=== PATIENT | female | born 2000 | race Caucasian/White ===

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

== ENCOUNTER → 2019-05-23 | Outpatient (CLI) | payer OTHER ==
--- NOTE | 2019-05-23 18:25 | Diagnostic Imaging Report ---
PROCEDURE: US Thyroid. TECHNIQUE: Multiple real-time grayscale images were obtained of the thyroid in various projections. INDICATION: Thyroid cyst. FINDINGS: The previous thyroid ultrasound exam performed on 08/04/2016 noted that the thyroid gland was not enlarged and that there was no focal abnormality involving either lobe. On this study, the thyroid gland does not appear to be enlarged. The right lobe measures 4.9 x 1.5 x 1.6 cm while the left lobe is estimated to be 4.2 x 1.2 x 1.6 cm (normal gland size 4-5 x 2 x 2 cm or less). Each lobe is fairly homogeneous. There is no discrete solid or cystic mass evident within either lobe. IMPRESSION: The thyroid gland appears stable when compared to the prior exam. The gland is not enlarged, and there is no discrete solid or cystic mass within either lobe. Dictated by: Dictated on workstation # [id number]
== END ==
LOC: RAD 15:48
PROVIDERS: ATTEND Nurse Practitioner
DX: E04.1 Nontoxic single thyroid nodule (principal); E03.9 Hypothyroidism, unspecified
CPT/HCPCS: 76536

== ENCOUNTER 2020-07-04 12:35 | Outpatient (CLI) | payer OTHER ==
[2020-07-04] VITALS (8 sets, daily range): BP systolic 137–176; BP diastolic 65–92
[~2020-07-04] VITALS: Ht 165 cm; Wt 135.7 kg
--- NOTE | 2020-07-04 12:42 | NUR ---
CHAVEZRAMAKRISHNA Gracia presented to unit via ambulation from ED, accompanied by mother, with c/o R ANKLE SWELLING/HIGH BP/DIARRHEA. INGE CHAVEZILY Basil weighed, gowned, voided, and to bed. EFHM and TOCO applied, VS taken. RAMAKRISHNA CHAVEZ Basil oriented to bed controls, call light, TV, heat, and A/C controls.
--- NOTE | 2020-07-04 13:19 | NUR ---
Dr. Leahy called and notified of pt arrival. Pt is G1 due 08/03 (35.5wks) here c/o diarrhea that started yesterday, ankle swelling x 2 days, cramping x 1 week, and SHEPHERD, dizziness, and elevated BP starting this morning. notified of SVE, VS, FHR, ctx pattern, patellar reflexes, urine dipstick and other assessment findings. Orders rec'd for IV fluids, labs, tylenol. Pt may have regular diet.
[2020-07-04] MEDS ORDERED: D5 LR IV SOLUTION 1,000 ML IV SCH (13:30)
[2020-07-04] MEDS ORDERED: ACETAMINOPHEN 500 MG TAB (TYLENOL) PO PRN (13:30)
[2020-07-04 14:11] LABS: URINE CREATININE FOR RATIO 131 MG/DL (30-125)
[2020-07-04 14:12] LABS: BASOPHILS % (AUTO) 0 % (0-10); EOSINOPHILS % (AUTO) 0 % (0-10); HEMATOCRIT 36 % (35-52); HEMOGLOBIN 12.3 g/dL (11.5-16.0); LYMPHOCYTES # (AUTO) 2.3 10^3/uL (1.0-4.0); LYMPHOCYTES % (AUTO) 20 % (12-44); MEAN CORPUSCULAR HEMOGLOBIN 29 pg (25-34); MEAN CORPUSCULAR HGB CONC 34 g/dL (32-36); MEAN CORPUSCULAR VOLUME 85 fL (80-99); MEAN PLATELET VOLUME 11.9 fL (9.0-12.2); MONOCYTES # (AUTO) 0.8 10^3/uL (0.0-1.0); MONOCYTES % (AUTO) 7 % (0-12); NEUTROPHILS # (AUTO) 8.6 10^3/uL (1.8-7.8); NEUTROPHILS % (AUTO) 73 % (42-75); PLATELET COUNT 186 10^3/uL (130-400); WHITE BLOOD COUNT 11.8 10^3/uL (4.3-11.0)
[2020-07-04 14:12] LABS: URINE PROTEIN FOR RATIO ONLY < 6 MG/DL (6-12)
[2020-07-04 14:32] LABS: ALANINE AMINOTRANSFERASE 12 U/L (0-55); ALBUMIN 3.3 GM/DL (3.2-4.5); ALKALINE PHOSPHATASE 124 U/L (40-136); BILIRUBIN,TOTAL 0.2 MG/DL (0.1-1.0); BUN/CREATININE RATIO 13; CALCIUM 9.3 MG/DL (8.5-10.1); CARBON DIOXIDE 20 MMOL/L (21-32); CHLORIDE 106 MMOL/L (98-107); CREATININE SERUM 0.71 MG/DL (0.60-1.30); GFR ESTIMATED > 60; GLUCOSE 77 MG/DL (70-105); SODIUM 138 MMOL/L (135-145); TOTAL PROTEIN 6.1 GM/DL (6.4-8.2); URIC ACID 5.7 MG/DL (2.6-7.2)
--- NOTE | 2020-07-04 14:47 | NUR ---
Lab results reported to Dr. Leahy, along with latest VS. Orders for dismissal rec'd.
[2020-07-04] MEDS ORDERED: PREN-48 PO (15:03)
--- NOTE | 2020-07-04 15:29 | NUR ---
Discharge instructions explained to pt with copy provided to pt. Pt verbalizes understanding of instructions and signs to verify. No questions or concerns voiced. Pt ambulates off unit to private vehicle accompanied by mom.
--- NOTE | 2020-07-07 16:47 | Physician Query-Final Dx ---
DESI GARRETT 07/07/20 1646: Final Diagnosis Give Final Diagnosis Please give Final Diagnosis SARAY MARCUM MD 07/08/20 1540: Final Diagnosis Give Final Diagnosis Viral gastroenteritis DESI GARRETT Jul 07, 2020 16:46 SARAY MARCUM MD Jul 08, 2020 15:40
== END 2020-07-04 15:30 | disposition home or self-care (01) ==
LOC: WSo 12:35 → LDRP 12:35 → WSo 15:30
PROVIDERS: ATTEND Obstetrics & Gynecology
DX: O99.619 Diseases of the digestive system complicating pregnancy, unspecified trimester (principal); A08.4 Viral intestinal infection, unspecified; Z3A.36 36 weeks gestation of pregnancy
CPT/HCPCS: 80053; 82570; 83615; 84156; 84550; 85025; 96360; G0463; 36415; 99214

== ENCOUNTER → 2020-07-13 | Outpatient (CLI) | payer OTHER ==
[~2020-07-13] MED LIST changes: -CATHETER FLUSH 10 ML SYR IV PRN; -IOHEXOL 350 MG/ML 100 ML (OMNIPAQUE 350) VIAL IV ONE; -NS 250 ML (IVPB) BAG IV ONE; +PREN-48 PO; -RECEIVED CONTRAST (Hold Metformin) IV SCH
[2020-07-13 16:20] LABS: URINE CREATININE FOR RATIO 23 MG/DL (30-125)
[2020-07-13 16:21] LABS: URINE PROTEIN FOR RATIO ONLY < 6 MG/DL (6-12)
== END ==
LOC: LABNPT 15:00
PROVIDERS: ATTEND Obstetrics & Gynecology
DX: O14.93 Unspecified pre-eclampsia, third trimester (principal)
CPT/HCPCS: 82570; 84156

== ENCOUNTER 2020-07-16 10:53 | Inpatient (IN) | payer OTHER ==
[~2020-07-16] VITALS: Ht 169.3 cm; Wt 136.3 kg
[2020-07-16] VITALS (41 sets, daily range): BP systolic 98–179; BP diastolic 48–103
[~2020-07-16 10:53] MED LIST changes: -DOCU-143 PO; -IBUP-1780 PO; -OXYC1TAB12 PO
--- NOTE | 2020-07-16 11:00 | NUR ---
RAMAKRISHNA CHAVEZ presented to unit via WC from ED, accompanied by S/0, with c/o CONTRACTIONS. RAMAKRISHNA CHAVEZ weighed, gowned, voided, and to bed. EFHM and TOCO applied, VS taken. RAMAKRISHNA CHAVEZ oriented to bed controls, call light, TV, heat, and A/C controls.
--- NOTE | 2020-07-16 11:40 | NUR ---
DR MARCUM CALLED, NEW ORDERS RECEIVED PT ADMITTED FOR LABOR.
[2020-07-16] MEDS ORDERED: LIDOCAINE/EPI 2% 1:200,00 (XYLOCAINE) 10 ML VIAL INJ PRN (12:00)
[2020-07-16] MEDS ORDERED: D5 LR IV SOLUTION 1,000 ML IV SCH ×3 (12:00→20:15)
[2020-07-16] MEDS ORDERED: OXYTOCIN PRE-MIX DRIP 500 ML IV SCH ×3 (12:00→20:15)
--- NOTE | 2020-07-16 12:30 | History & Physical ---
History and Physical Date Seen by Provider: Jul 16, 2020 Time Seen by Provider: 12:26 This patient is a 20-year-old 1 white female currently at 37-3/7 weeks gestation who is admitted from my clinic with elevated blood pressure and an elevated LDH and with somewhat regular contractions. She denies rupture membranes or bleeding. She has had no problems with this , other than a persistently elevated blood pressure and a recently progressively increased blood pressure. Patient denies rupture membranes or bleeding. Her GBS culture was negative. Allergies are none Medications are vitamins Medical social and surgical history is all per the antepartum record HEENT exam is normal Neck is supple no lymphadenopathy no thyromegaly Abdomen is gravid soft nontender nondistended Extremities show no clubbing or cyanosis. There is no Homans' sign. Pelvic exam in my clinic on this date showed a cervix 1 cm dilated 70% effaced relatively high station. NST clinic showed a reactive NST with occasional contractions, patient currently is [place] about every 5 or 6 minutes Lab work performed in my clinic showed an elevated LDH, platelet count of about 180,000, hemoglobin of 12, a urine protein creatinine ratio that was apparently not elevated Assessment and plan 37+ week gestation in a patient with significant PIH and with an elevating LDH concerning for developing preeclampsia/help syndrome. Patient is admitted now may be in early labor as evidenced by her regular contractions but she will managed for either vaginal delivery or IF warranted. Close attention to blood pressures and we will follow up her lab work after delivery as well 37-3/7 weeks gestation with PIH/preeclampsia Allergies and Home Medications Allergies Coded Allergies: No Known Drug Allergies (Unverified , 11/27/10) Home Medications Vit No.78/Iron/FA 1 Each Tablet, 1 EACH PO DAILY, (Reported) Patient Home Medication List Home Medication List Reviewed: Yes SARAY MARCUM MD Jul 16, 2020 12:30
[2020-07-16 13:56] LABS: BASOPHILS % (AUTO) 0 % (0-10); EOSINOPHILS % (AUTO) 0 % (0-10); HEMATOCRIT 39 % (35-52); HEMOGLOBIN 13.5 g/dL (11.5-16.0); LYMPHOCYTES # (AUTO) 2.4 10^3/uL (1.0-4.0); LYMPHOCYTES % (AUTO) 19 % (12-44); MEAN CORPUSCULAR HEMOGLOBIN 30 pg (25-34); MEAN CORPUSCULAR HGB CONC 35 g/dL (32-36); MEAN CORPUSCULAR VOLUME 85 fL (80-99); MEAN PLATELET VOLUME 12.3 fL (9.0-12.2); MONOCYTES # (AUTO) 0.6 10^3/uL (0.0-1.0); MONOCYTES % (AUTO) 5 % (0-12); NEUTROPHILS # (AUTO) 9.4 10^3/uL (1.8-7.8); NEUTROPHILS % (AUTO) 75 % (42-75); PLATELET COUNT 206 10^3/uL (130-400); WHITE BLOOD COUNT 12.5 10^3/uL (4.3-11.0)
[2020-07-16] MEDS ORDERED: fentaNYL 2 mcg/ml BUPIVA 0.125 100 ML ONE (16:06)
[2020-07-16] MEDS ORDERED: LIDOCAINE PF 2% 5 ML (XYLOCAINE) VIAL ONE ×2 (16:07→18:24)
[2020-07-16] MEDS ORDERED: BUPIVACAINE 0.25% 30 ML (SENSORCAINE) VIAL ONE ×2 (16:07→19:24)
[2020-07-16] MEDS ORDERED: fentaNYL INJECTION 100 MCG/2 ML AMP ONE ×2 (16:08→17:23)
[2020-07-16] MEDS ORDERED: fentaNYL INJECTION 100 MCG/2 ML AMP INJ ONE (16:15)
[2020-07-16] MEDS ORDERED: NALOXONE 0.4 MG/ML 1 ML (NARCAN) VIAL IV PRN (16:15)
[2020-07-16] MEDS ORDERED: LACTATED RINGERS 1,000 ML IV ONE ×2 (16:15)
[2020-07-16] MEDS ORDERED: ONDANSETRON 4 MG/2 ML (SDV) Z0FRAN IV PRN (16:15)
[2020-07-16] MEDS ORDERED: EPIDURAL (fentaNYL 2 MCG/ML BUPIVA 0.125%)100 ML BAG EPI PRN (16:15)
--- NOTE | 2020-07-16 16:15 | NUR ---
TERRA here for epidural placement. Procedure explained, consent reviewed and signed by anesthesia. Questions answered to patient's satisfaction. Time out taken to verify correct patient/procedure. Patient up to side of bed, assisted into sitting position. Betadine prep done x3 and sterile drape applied. Local done, see anesthesia record. Test dose given, see anesthesia record for drug and dosage. Epidural catheter secured in place. Epidural placement complete. Assisted back into bed, monitors adjusted. Epidural dosed, see anesthesia record. Epidural of Sufenta/Bupvicaine @_12 cc/hr stated per pump. Patient tolerated procedure well.
[2020-07-16] MEDS ORDERED: CITRIC ACID/SOB CIT (BICITRA) 30 ML UDC ONE (17:07)
[2020-07-16] MEDS ORDERED: AZITHROMYCIN INJECTION 500 MG/5 ML VIAL ONE (17:07)
[2020-07-16] MEDS ORDERED: METOCLOPRAMIDE INJ 10 MG/2 ML (REGLAN) ONE (17:07)
[2020-07-16] MEDS ORDERED: FAMOTIDINE 20MG/2ML IV (PEPCID) ONE (17:08)
[2020-07-16] MEDS ORDERED: ceFAZolin 2 GM IV Premixed 50 ML ONE (17:08)
[2020-07-16] MEDS ORDERED: metroNIDAZOLE 500MG/100ML IVPB 100 ML ONE (17:08)
[2020-07-16] MEDS ORDERED: TERBUTALINE INJ 1 MG/ML (BRETHINE) AMP ONE (17:20)
[2020-07-16] MEDS ORDERED: ceFAZolin INJECTION 2,000 MG in WATER (STERILE) FOR INJECTION 10 ML IV ONE (17:30)
[2020-07-16] MEDS ORDERED: metroNIDAZOLE 500MG/100ML IVPB 100 ML IV ONE (17:30)
[2020-07-16] MEDS ORDERED: IBUP-1780 PO (17:31)
[2020-07-16] MEDS ORDERED: DOCU-143 PO (17:31)
[2020-07-16] MEDS ORDERED: OXYC1TAB12 PO (17:31)
--- NOTE | 2020-07-16 17:31 | Discharge Inst-Surgical ---
Discharge Inst-Surgical Depart Medication/Instructions New, Converted or Re-Newed RX: RX on Chart Consults/Follow Up Patient Instructions: As directed Orders & Referrals Follow Up Appt: RTC On Friday, July 24, 2020 at 9:30 AM for incision check. Call to make follow up appt. for patient in 4 weeks. Wound Care: Remove griffin, apply benzoin and steri strips. Activity Per routine post instructions. Please call in RX to patient pharmacy. Diet as tolerated Patient may shower or tub bathe as desired. Continue home meds Activity Activity as Tolerated: No Diet Discharge Diet: No Restrictions SARAY MARCUM MD Jul 16, 2020 17:31
[2020-07-16] MEDS ORDERED: OXYTOCIN PRE-MIX DRIP 1,000 ML IV ONE (17:35)
[2020-07-16] MEDS ORDERED: LACTATED RINGERS 1,000 ML IV PRN ×2 (17:45)
[2020-07-16] MEDS ORDERED: FAMOTIDINE 20MG/2ML IV (PEPCID) IV ONE (17:45)
[2020-07-16] MEDS ORDERED: METOCLOPRAMIDE INJ 10 MG/2 ML (REGLAN) IV ONE (17:45)
[2020-07-16] MEDS ORDERED: CITRIC ACID/SOB CIT (BICITRA) 30 ML UDC PO ONE (17:45)
[2020-07-16] MEDS ORDERED: TERBUTALINE INJ 1 MG/ML (BRETHINE) AMP SC ONE (17:45)
[2020-07-16] MEDS ORDERED: PHENYLEPHRINE 100 MCG/ML 10 ML (ANESTHESIA) SYR ONE (18:39)
--- NOTE | 2020-07-16 20:11 | NUR ---
Pt transferred via bed from recovery to PP UNIT ROOM 308, oriented to call system and surroundings, sandwich trays supplied, water refilled, pt denies needs at this time.
[2020-07-16] MEDS ORDERED: MEASLES,MUMPS,RUBELLA 1 EA INJ SC ONE (20:15)
[2020-07-16] MEDS ORDERED: ONDANSETRON 4 MG/2 ML (SDV) Z0FRAN IVP PRN (20:15)
[2020-07-16] MEDS ORDERED: TETANUS,DIPTH,PERTUSS P/F (BOOSTRIX) 0.5 ML VIAL IM ONE (20:15)
[2020-07-16] MEDS ORDERED: fentaNYL INJECTION 100 MCG/2 ML AMP IVP PRN (20:15)
[2020-07-16] MEDS: DOCUSATE SODIUM 100 MG (COLACE) CAP PO SCH (20:31)
[2020-07-16] MEDS: KETOROLAC 30 MG/ML VIAL IVP SCH (20:31)
[2020-07-16] MEDS ORDERED: DOCUSATE SODIUM 100 MG (COLACE) CAP PO SCH (21:00)
[2020-07-16] MEDS: oxyCODONE/APAP 10/325MG (PERCOCET 10) TABLET PO PRN (22:01)
--- NOTE | 2020-07-16 23:32 | OPERATIVE REPORT ---
DATE OF SERVICE: 07/16/2020 PREOPERATIVE DIAGNOSES: A 37-week in labor with severe preeclampsia, nonreassuring heart rate pattern. POSTOPERATIVE DIAGNOSES: A 37-week in labor with severe preeclampsia, nonreassuring heart rate pattern. OPERATIVE PROCEDURE: Primary low transverse delivery of a viable male with Apgars of 9 and 9 at 1 and 5 minutes respectively, weight of 7 pounds 7 ounces, cord blood gas pH of 7.24 and a time of 1846 hours. OPERATIVE DESCRIPTION: With the patient in the supine position under satisfactory spinal analgesia, the patient was prepped and draped in the usual fashion for abdominal surgery. Almonte catheter had been placed in the urinary bladder during labor that was left to dependent drainage. A Pfannenstiel incision was made through skin with scalpel, the patient's abdomen entered in the usual manner. Bladder retractor placed in position, clean scalpel used to make a 4 cm hysterotomy incision transversely across the lower uterine segment. That incision was extended bluntly. A vigorous viable male infant was delivered via the uterine incision. was bulb suctioned on delivery of the head and again on completion of delivery. Umbilical cord was doubly clamped and cut, and the infant passed to the pediatric nurse in attendance for delivery. Cord bloods were obtained. The placenta delivered spontaneously Gomes. It was normal with a 3-vessel cord. The uterus was exteriorized and interior wiped clean with a wet laparotomy sponge. Uterine incision then closed with a running locked suture of 2-0 Vicryl. Hemostasis was satisfactory; however, the uterus was quite boggy and atonic. Modified B-Fortune suture was placed using 2-0 chromic sutures in the usual modified manner. This compressed the uterus nicely. The uterus was now returned to the abdominal cavity. All blood clot and debris removed from the abdominal cavity. With sponge and needle counts correct, hemostasis assured, anterior parietal peritoneum was closed with running suture of 2-0 Vicryl. Rectus muscles were closed with that suture as well. The rectus fascia was closed with 2-0 Vicryl, subcutaneous tissue was closed with 2-0 Vicryl and the skin was stapled. Sponge and needle counts were correct on completion of the procedure. Estimated blood loss was around 200 mL. However, my estimation with probably closer to 500 to 600. Sponge and needle counts were correct on completion of the procedure. The patient tolerated the procedure well and was transferred to recovery room in stable condition. The remained with the mom. Job ID: [id number] DocumentID: [id number] Dictated Date: 07/16/2020 20:51:46 Workers Compensation Adjuster Date: 07/16/2020 23:32:20 Dictated By: SARAY MARCUM MD
[2020-07-17] MEDS: KETOROLAC 30 MG/ML VIAL IVP SCH ×3 (01:28→14:44)
--- NOTE | 2020-07-17 01:30 | NUR ---
Pt ambulated to the bathroom. Positive void pericare completed. pad and panties applied. Pt ambulated back to bed. Denies any needs at this time. will continue to monitor.
[2020-07-17 02:44] VITALS: BP 150/94
[2020-07-17] MEDS: oxyCODONE/APAP 10/325MG (PERCOCET 10) TABLET PO PRN ×3 (04:28→18:32)
[2020-07-17 05:57] VITALS: BP 152/97
--- NOTE | 2020-07-17 07:40 | Progress Note ---
Standard Progress Note Progress Notes/Assess & Plan Date Seen by a Provider: Jul 17, 2020 Time Seen by a Provider: 07:39 Progress/Assessment & Plan This patient is without complaint. She is ambulating, voiding, tolerating oral intake well and has good pain control. Vital Signs Date Time Temp Pulse Resp B/P (MAP) Pulse Ox O2 Delivery O2 Flow Rate FiO2 07/17/20 05:57 36.5 69 20 152/97 (115) 99 Room Air 07/17/20 02:44 36.8 82 20 150/94 (112) 99 Room Air 07/16/20 22:02 36.6 83 20 146/102 (117) 99 Room Air 07/16/20 21:00 36.8 65 20 153/95 (114) 100 Room Air 07/16/20 20:23 63 20 138/90 (106) 100 Room Air 07/16/20 20:11 36.6 18 135/79 (97) 100 Room Air 07/16/20 19:56 36.4 18 131/74 (93) 100 Room Air 07/16/20 19:41 36 18 128/73 (91) 100 Room Air 07/16/20 19:26 36.1 18 110/55 (73) 98 Room Air 07/16/20 19:11 36.8 18 98/48 (65) 99 Room Air 07/16/20 17:35 94 20 173/86 (115) 100 Non Rebreather 07/16/20 17:20 83 20 153/84 (107) 100 Non Rebreather 07/16/20 17:10 79 20 152/84 (106) 99 Non Rebreather 07/16/20 17:02 99 20 150/86 (107) 99 Non Rebreather 07/16/20 16:59 85 20 153/76 (101) 99 Room Air 07/16/20 16:53 98 20 152/74 (100) 98 Room Air 07/16/20 16:49 100 20 168/81 (110) 99 Room Air 07/16/20 16:46 36.6 100 20 168/81 (110) 99 Room Air 07/16/20 16:43 102 20 158/83 (108) 99 Room Air 07/16/20 16:40 88 20 168/93 (118) 99 Room Air 07/16/20 16:38 97 20 154/93 (113) 99 Room Air 07/16/20 16:35 100 20 173/97 (122) 99 Room Air 07/16/20 16:33 8 20 161/92 (115) 100 Room Air 07/16/20 16:30 86 20 169/103 (125) 100 Room Air 07/16/20 16:15 83 20 157/96 (116) 99 Room Air 07/16/20 16:00 76 20 143/86 (105) Room Air 07/16/20 15:45 76 20 143/89 (107) Room Air 07/16/20 15:30 91 20 165/88 (113) 100 Room Air 07/16/20 15:15 76 20 135/70 (91) Room Air 07/16/20 15:00 79 20 137/75 (95) Room Air 07/16/20 14:45 36.6 75 20 137/78 (97) Room Air 07/16/20 14:30 79 20 150/82 (104) Room Air 07/16/20 14:15 78 20 148/85 (106) Room Air 07/16/20 14:00 80 20 162/77 (105) Room Air 07/16/20 13:45 86 20 179/91 (120) 100 Room Air 07/16/20 13:30 91 20 165/88 (113) 100 Room Air 07/16/20 12:45 83 20 127/84 (98) Room Air 07/16/20 12:30 81 20 132/78 (96) 100 Room Air 07/16/20 12:00 76 20 136/78 (97) 100 Room Air 07/16/20 11:45 78 20 126/71 (89) 99 Room Air 07/16/20 11:30 79 20 136/75 (95) 98 Room Air 07/16/20 11:15 36.2 83 20 141/83 (102) 98 Room Air 07/16/20 11:00 36.2 91 20 98 Room Air I & O 07/17/20 07:00 Intake Total 1050 ml Output Total 900 ml Balance 150 ml Vital signs are stable. Patient is afebrile. The abdomen is benign. The surgical incision is clean dry and intact. Extremities show no clubbing or cyanosis. There is no Homans' sign. Assessment and plan postoperative day #1 status post primary delivery at 37+ weeks gestation. Patient is doing well and will have routine convalescent care. Blood pressures are relatively stable and significantly improved from admission plan is observation in regard to her blood pressures and preeclampsia SARAY MARCUM MD Jul 17, 2020 07:40
[2020-07-17] MEDS: DOCUSATE SODIUM 100 MG (COLACE) CAP PO SCH ×2 (08:29→20:11)
[2020-07-17 08:30] VITALS: BP 136/82
--- NOTE | 2020-07-17 08:30 | NUR ---
initial shift assessment completed, see interventions for further. Abd incision ELADIA, clips D/I. incision edges well approximated, no sx's of infection noted.
[2020-07-17] MEDS ORDERED: ONDANSETRON 4 MG/2 ML (SDV) Z0FRAN ONE (09:36)
[2020-07-17] MEDS ORDERED: ONDANSETRON 4 MG/2 ML (SDV) Z0FRAN IVP NR (09:45)
--- NOTE | 2020-07-17 14:10 | Anesthesia-Regional Post-Op ---
Regional Patient Condition Mental Status: Alert, Oriented x3 Circulation: Same as Pre-Op Headache: Absent Sensation: Full Recovery Motor Block: Absent Post Op Complications Complications None Follow Up Care/Instructions Patient Instructions None needed. Anesthesia/Patient Condition Patient is doing well, no complaints, stable vital signs, no apparent adverse anesthesia problems. No complications reported per nursing. D/C home per [facility] [place] Criteria: Yes KENNY VACA CRNA Jul 17, 2020 14:10
[2020-07-17 16:30] VITALS: BP 125/71
--- NOTE | 2020-07-17 19:16 | NUR ---
report given to next shift.
--- NOTE | 2020-07-17 19:30 | NUR ---
Patient complaining of right, upper shoulder pain. Warm blankets provided. Will return for assessment and with pain medication. Patient encouraged to walk around to help with discomfort.
[2020-07-17] MEDS ORDERED: IBUPROFEN 800 MG (MOTRIN) TAB PO ONE (20:02)
[2020-07-17 20:10] VITALS: BP 137/65
[2020-07-17] MEDS ORDERED: IBUPROFEN 800 MG (MOTRIN) TAB PO SCH (20:15)
[2020-07-18 00:50] VITALS: BP 133/74
[2020-07-18] MEDS: oxyCODONE/APAP 10/325MG (PERCOCET 10) TABLET PO PRN ×3 (00:50→11:31)
[2020-07-18] MEDS: IBUPROFEN 800 MG (MOTRIN) TAB PO SCH ×2 (03:07→10:30)
[2020-07-18 07:35] VITALS: BP 150/104
[2020-07-18 11:10] VITALS: BP 130/78
--- NOTE | 2020-07-18 13:47 | Progress Note ---
Standard Progress Note Progress Notes/Assess & Plan Date Seen by a Provider: Jul 18, 2020 Time Seen by a Provider: 13:45 Progress/Assessment & Plan This patient is without complaint. She is ambulating, voiding, tolerating oral intake well and has good pain control. Vital Signs Date Time Temp Pulse Resp B/P (MAP) Pulse Ox O2 Delivery O2 Flow Rate FiO2 07/17/20 05:57 36.5 69 20 152/97 (115) 99 Room Air 07/17/20 02:44 36.8 82 20 150/94 (112) 99 Room Air 07/16/20 22:02 36.6 83 20 146/102 (117) 99 Room Air 07/16/20 21:00 36.8 65 20 153/95 (114) 100 Room Air 07/16/20 20:23 63 20 138/90 (106) 100 Room Air 07/16/20 20:11 36.6 18 135/79 (97) 100 Room Air 07/16/20 19:56 36.4 18 131/74 (93) 100 Room Air 07/16/20 19:41 36 18 128/73 (91) 100 Room Air 07/16/20 19:26 36.1 18 110/55 (73) 98 Room Air 07/16/20 19:11 36.8 18 98/48 (65) 99 Room Air 07/16/20 17:35 94 20 173/86 (115) 100 Non Rebreather 07/16/20 17:20 83 20 153/84 (107) 100 Non Rebreather 07/16/20 17:10 79 20 152/84 (106) 99 Non Rebreather 07/16/20 17:02 99 20 150/86 (107) 99 Non Rebreather 07/16/20 16:59 85 20 153/76 (101) 99 Room Air 07/16/20 16:53 98 20 152/74 (100) 98 Room Air 07/16/20 16:49 100 20 168/81 (110) 99 Room Air 07/16/20 16:46 36.6 100 20 168/81 (110) 99 Room Air 07/16/20 16:43 102 20 158/83 (108) 99 Room Air 07/16/20 16:40 88 20 168/93 (118) 99 Room Air 07/16/20 16:38 97 20 154/93 (113) 99 Room Air 07/16/20 16:35 100 20 173/97 (122) 99 Room Air 07/16/20 16:33 8 20 161/92 (115) 100 Room Air 07/16/20 16:30 86 20 169/103 (125) 100 Room Air 07/16/20 16:15 83 20 157/96 (116) 99 Room Air 07/16/20 16:00 76 20 143/86 (105) Room Air 07/16/20 15:45 76 20 143/89 (107) Room Air 07/16/20 15:30 91 20 165/88 (113) 100 Room Air 07/16/20 15:15 76 20 135/70 (91) Room Air 07/16/20 15:00 79 20 137/75 (95) Room Air 07/16/20 14:45 36.6 75 20 137/78 (97) Room Air 07/16/20 14:30 79 20 150/82 (104) Room Air 07/16/20 14:15 78 20 148/85 (106) Room Air 07/16/20 14:00 80 20 162/77 (105) Room Air 07/16/20 13:45 86 20 179/91 (120) 100 Room Air 07/16/20 13:30 91 20 165/88 (113) 100 Room Air 07/16/20 12:45 83 20 127/84 (98) Room Air 07/16/20 12:30 81 20 132/78 (96) 100 Room Air 07/16/20 12:00 76 20 136/78 (97) 100 Room Air 07/16/20 11:45 78 20 126/71 (89) 99 Room Air 07/16/20 11:30 79 20 136/75 (95) 98 Room Air 07/16/20 11:15 36.2 83 20 141/83 (102) 98 Room Air 07/16/20 11:00 36.2 91 20 98 Room Air I & O 07/17/20 07:00 Intake Total 1050 ml Output Total 900 ml Balance 150 ml Vital signs are stable. Patient is afebrile. The abdomen is benign. The surgical incision is clean dry and intact. Extremities show no clubbing or cyanosis. There is no Homans' sign. Assessment and plan postoperative day #1 status post primary delivery at 37+ weeks gestation. Patient is doing well and will have routine convalescent care. Blood pressures are relatively stable and significantly improved from admission plan is observation in regard to her blood pressures and preeclampsia July 18, 2020 This patient is without complaint. She is ambulating, voiding, tolerating oral intake well and has good pain control. Patient is requesting discharge home. Vital Signs Date Time Temp Pulse Resp B/P (MAP) Pulse Ox O2 Delivery O2 Flow Rate FiO2 07/18/20 11:10 36.4 64 16 130/78 (95) 99 Room Air 07/18/20 07:35 36.3 90 16 150/104 (119) 98 Room Air 07/18/20 00:50 36.3 67 18 133/74 (93) 98 Room Air 07/17/20 20:10 36.7 75 18 137/65 (89) 99 Room Air 07/17/20 16:30 36.3 69 20 125/71 (89) 97 Room Air Vital signs are stable. Patient is afebrile. The abdomen is benign. The surgical incision is clean dry intact. Fundus is firm below the umbilicus nontender. Extremities show no clubbing or cyanosis. There is no Homans' sign. Assessment and plan postoperative day #2 status post primary delivery doing well. Plan is for discharge home Final Diagnosis 37-week primary delivery SARAY MARCUM MD Jul 18, 2020 13:47
[2020-07-21] MEDS ORDERED: IBUPROFEN 800 MG (MOTRIN) TAB PO SCH ×2 (20:15→21:00)
== END 2020-07-18 16:16 | disposition home or self-care (01) | DRG 788 ==
LOC: WSo 10:53 → LDRP 10:56 → WSo 11:29 → LDRP 11:29
PROVIDERS: ADMIT Obstetrics & Gynecology; ATTEND Obstetrics & Gynecology
PROC: 10D00Z1 Extraction of Products of Conception, Low, Open Approach (ICD-10-PCS; principal; 2020-07-16 17:46)
DX: O13.4 Gestational [pregnancy-induced] hypertension without significant proteinuria, complicating childbirth (principal); O14.14 Severe pre-eclampsia complicating childbirth; Z3A.37 37 weeks gestation of pregnancy; Z37.0 Single live birth; Z20.822 Contact with and (suspected) exposure to COVID-19
CPT/HCPCS: 36415; 85025; 86850; 86900; 86901; 87635

== ENCOUNTER → 2020-07-16 | Outpatient (CLI) | payer OTHER ==
[~2020-07-16] MED LIST changes: +DOCU-143 PO; +IBUP-1780 PO; +OXYC1TAB12 PO
[2020-07-16 10:43] LABS: URINE CREATININE FOR RATIO 68 MG/DL (30-125)
[2020-07-16 10:44] LABS: URINE PROTEIN FOR RATIO ONLY < 6 MG/DL (6-12)
== END ==
LOC: LABNPT 10:18
PROVIDERS: ATTEND Obstetrics & Gynecology
DX: O13.3 Gestational [pregnancy-induced] hypertension without significant proteinuria, third trimester (principal); Z3A.00 Weeks of gestation of pregnancy not specified
CPT/HCPCS: 82570; 84156